=== PATIENT | male | born 1955 | race Caucasian/White ===

== ENCOUNTER 2019-03-14 13:16 | Emergency (ER) | payer OTHER ==
[~2019-03-14] VITALS: Wt 100.0 kg
[2019-03-14 13:26] VITALS: BP 171/87; PULSE 87; RESP 20
--- NOTE | 2019-03-14 13:33 | EN ---
Date/Time of Note Date/Time of Note DATE: 03/14/19 TIME: 13:32 ER Progress Note Quick RME note: Medical screening exam was initiated and lab/imaging studies were ordered. Patient will be seen in ED 2 by another provider. HPI: 64-year-old male who presents the ER for concerns of dysuria x1 week. Patient also admits to urinary frequency. He denies any flank pain, fevers, chills, nausea, vomiting. Patient denies any hematuria. Orders placed: UA and urine culture ordered LORI ABDULLAHI PA-C March 14, 2019 13:33
--- NOTE | 2019-03-14 14:23 | ERD ---
ER Documentation Chief Complaint Chief Complaint c/o dysuria x1 week, denies hematuria HPI 64-year-old male with history of HIV and normal CD4 count who presents the ER for concerns of dysuria x1 week. Patient also admits to urinary frequency. States he has a history of UTIs for which she was treated here in the past. States that the treatment we gave him the past worked and he would like the same treatment. He denies any flank pain, fevers, chills, nausea, vomiting. Patient denies any hematuria. ROS All systems reviewed and are negative except as per history of present illness. Medications Home Meds Active Scripts Ciprofloxacin Hcl* (Ciprofloxacin Hcl*) 500 Mg Tablet, 500 MG PO BID for UTI for 10 Days, TAB Prov:BETO PAUL 03/14/19 Allergies Allergies: Coded Allergies: Sulfa (Sulfonamide Antibiotics) (Verified Allergy, Intermediate, 11/03/14) codeine (Verified Allergy, Unknown, 11/03/14) ibuprofen (Verified Allergy, Unknown, 11/03/14) Uncoded Allergies: AZT DIRIVATIVE (Allergy, Unknown, PAIN, 09/07/14) PMhx/Soc History of Surgery: Yes (SPINAL SURGERY ) Anesthesia Reaction: No Hx Neurological Disorder: Yes (SCIATICA ) Hx Respiratory Disorders: No Hx Cardiac Disorders: Yes (chf) Hx Psychiatric Problems: No Hx Miscellaneous Medical Probl: Yes (sciatica, arthritis, bph) Hx Alcohol Use: No Hx Substance Use: No Hx Tobacco Use: No Smoking Status: Never smoker Physical Exam Vitals Vital Signs Date Temp Pulse Resp B/P (MAP) Pulse Ox O2 O2 Flow FiO2 Time Delivery Rate 03/14/19 97.0 87 20 171/87 98 13:26 (115) Physical Exam Const: No acute distress Head: Atraumatic Eyes: Normal Conjunctiva ENT: Normal External Ears, Nose and Mouth. Neck: Full range of motion. No meningismus. Resp: Clear to auscultation bilaterally Cardio: Regular rate and rhythm, no murmurs Abd: Tenderness palpation suprapubic area. Soft, non tender, non distended. Normal bowel sounds Skin: No petechiae or rashes Back: No midline or flank tenderness Ext: No cyanosis, or edema Neur: Awake and alert Psych: Normal Mood and Affect Results 24 hrs Laboratory Tests Test 03/14/19 13:53 Urine Color JIHAN Urine Clarity TURBID Urine pH 5.0 Urine Specific [place] 1.022 Urine Ketones NEGATIVE mg/dL Urine Nitrite NEGATIVE mg/dL Urine Bilirubin NEGATIVE mg/dL Urine Urobilinogen NEGATIVE mg/dL Urine Leukocyte Esterase 2+ Shweta/ul Urine Microscopic RBC 49 /HPF Urine Microscopic WBC > 182 /HPF Urine Squamous Epithelial Cells FEW /HPF Urine Renal Epithelial Cells FEW /HPF Urine Bacteria FEW /HPF Urine Mucus FEW /HPF Urine Hemoglobin NEGATIVE mg/dL Urine Glucose 1+ mg/dL Urine Total Protein 3+ mg/dl Current Medications Medications Dose Sig/Bon Start Time Status Last (Trade) Ordered Route PRN Stop Time Admin Dose Reason Admin 500 mg ONCE ONCE 03/14/19 DC 03/14/19 Ciprofloxacin PO 15:00 15:00 (Cipro) 03/14/19 15:01 Ceftriaxone 1 gm ONCE ONCE 03/14/19 DC 03/14/19 Sodium IM 15:00 15:00 (Rocephin) 03/14/19 15:01 Lidocaine 5 ml ONCE ONCE 03/14/19 DC 03/14/19 (Xylocaine INJ 15:00 15:00 1% (Mpf)) 03/14/19 15:01 Procedures/MDM MDM: UA was positive for UTI. Given patient's complaint is suprapubic tenderness as well as medical history of HIV patient will be treated for complicated UTI. Patient given 1 g ceftriaxone in the ER and discharged 10 days of ciprofloxacin. Perimedian was contraindicated due to his impaired renal status. When I saw the patient had 3+ protein on the urinary asked patient if he is being followed by primary care for his kidney condition. Patient said that he sees his kidney specialist every 3 months and he had an appointment in 2 weeks. Patient states that he usually has proteinuria on his UA. I have low suspicion for acute kidney failure, nephrolithiasis, sepsis, or any other emergent condition. Patient discharged with strict ER precautions. Patient advised to follow up with PMD. All questions answered at discharge. Departure Diagnosis: Primary Impression: UTI (urinary tract infection) Urinary tract infection type: acute cystitis Hematuria presence: without hematuria Qualified Codes: N30.00 - Acute cystitis without hematuria Condition: Stable BETO PAUL March 14, 2019 14:23
[2019-03-14] MEDS ORDERED: CIPR500T4 PO (14:58)
[2019-03-14] MEDS ORDERED: LIDOCAINE 1% (MPF) 5 ML VIAL INJ ONE (15:00)
[2019-03-14] MEDS ORDERED: CIPROFLOXACIN 500 MG TAB PO ONE (15:00)
[2019-03-14] MEDS ORDERED: CEFTRIAXONE 1 GM INJ IM ONE (15:00)
== END 2019-03-14 15:15 | disposition home or self-care (01) ==
LOC: FTE 13:16
DX: N30.00 Acute cystitis without hematuria (principal); I50.9 Heart failure, unspecified; Z21 Asymptomatic human immunodeficiency virus [HIV] infection status
CPT/HCPCS: 81001; 87086; 96372; 99283; J0696